=== PATIENT | male | born 1970 | race Caucasian/White ===

== ENCOUNTER 2021-01-03 17:29 | Emergency (ER) | payer MEDICARE, SELFPAY ==
[2021-01-03 17:40] VITALS: BP 111/75; PULSE 104; RESP 20; TEMP 37.1; O2SAT 96; BMI 26.6
--- NOTE | 2021-01-03 18:51 | XRR_ITS ---
PROCEDURE INFORMATION: Exam: XR Chest Exam date and time: 01/03/2021 6:55 PM Age: 50 years old Clinical indication: Cough and fever and shortness of breath; Additional info: N/v TECHNIQUE: Imaging protocol: XR of the chest. Views: 1 view. Total images: 1 COMPARISON: No relevant prior studies available. FINDINGS: Lungs: No visible active interstitial or alveolar airspace disease. Hyperinflation and query a history of COPD/chronic bronchitis. Pleural spaces: Unremarkable. No pleural effusion. No pneumothorax. Heart/Mediastinum: Unremarkable. No cardiomegaly. Bones/joints: Unremarkable. XR/XR chest 1V portable [id number] IMPRESSION: Nonacute.
--- NOTE | 2021-01-03 18:53 | ED_ITS ---
HPI - COVID General: Chief Complaint: COVID symptoms Stated Complaint: COVID SYMPTOMS Time Seen by Provider: 01/03/21 18:48 Triage information: Has fever, cough or shortness of breath . No known COVID + exposure last 14 days History of Present Illness: HPI Narrative: Patient presents with nausea vomiting and diarrhea. Body aches. Loss of taste and smell. No known Covid exposure. Has been around some folks with gastroenteritis. Has not taken any medications. MD complaint: other (Nausea vomiting diarrhea and body aches) Prior covid testing: no COVID 19 common symptoms: positive chills, body aches, loss of sense of smell and/or taste, nausea, vomiting and diarrhea; negative cough, non-productive cough, productive cough, dyspnea, headache(s) or nasal congestion COVID 19 other sytmptoms: negative chest pain Onset (ago): day(s) Severity: mild COVID Results: SARS-CoV-2 Antigen (Rapid) Negative (Negative) 01/03/21 20:05 01/03/21 Review of Systems Const: Reports: chills and body aches Eyes: Denies: change in vision or blurry vision ENMT: Denies: nasal congestion Card: Denies: chest pain or dyspnea on exertion Resp: Denies: dyspnea, productive cough or non-productive cough GI: Reports: abdominal pain, nausea, vomiting, diarrhea and white/light colored stool : Reports: other (Dark urine); Denies: difficulty urinating Musc: Denies: extremity pain Skin/Breast: Denies: rash Neuro: Denies: headache(s) Psych: Denies: anxiety or depression Ramsey/Lymph: Denies: easy bruising Physical Exam Const: COMMON NORMALS: no acute distress, average body habitus and patient oriented x3 HENMT: COMMON NORMALS: normocephalic HEAD & SCALP: normal to inspection and normocephalic FACE & SINUS: normal facial exam Eye: CONJUNCTIVA: Yes conjunctival abnormal (Mild jaundice) Neck/C-Spine: COMMON NORMALS: no JVD Chest: COMMONS NORMALS: normal inspection of the chest Resp: COMMON NORMALS: normal respiratory effort and clear to auscultation bilaterally AUSCULTATION: clear to auscultation bilaterally Cardio: COMMON NORMALS: no JVD, regular rate and regular rhythm RATE: regular rate RHYTHM: regular rhythm GI: COMMON NORMALS: Normal to inspection, nondistended, normoactive bowel sounds present PALPATION: Yes Tenderness to palpation present (GI) Details: RUQ Extremity: COMMON NORMALS: normal to inspection and full ROM Neuro: COMMON NORMALS: patient oriented x3 Course Vital Signs: Vital signs: Vital Signs Temperature 98.8 F 01/03/21 17:40 Pulse Rate 104 H 01/03/21 17:40 Respiratory Rate 20 H 01/03/21 17:40 Blood Pressure 111/75 01/03/21 17:40 Pulse Oximetry 94 01/03/21 20:16 MDM - COVID MDM Narrative: Medical decision making narrative: After chemistries come back 1 reassess patient patient admits to having hailey colored stools dark urine and he said his right upper quadrant has hurt some. Patient has slightly jaundice. Does admit to living with a hepatitis C person. Denies any known exposure to hepatitis. Discussed case with Dr. Daily. Will order abdominal CT.. CT show mildly thickened gallbladder wall. Does have some portal edema. Patient was advised to be admitted I spoke with Dr. Daily about the patient patient refused admission is signed out AMA he was canceled given sign out AMA and his dad was there and wanted him to stay in the hospital but patient refused said he will follow-up when he gets back to [place]. Patient signed AMA form. Lab Data: Labs: Lab Results 01/03/21 01/03/21 01/03/21 Range/Units 19:50 19:50 19:50 WBC 9.0 (4.0-10.0) 10^3/ uL RBC 5.16 (4.1-5.3) 10^6/u L Hgb 15.3 (11.7-16.6) g/dL Hct 44.3 (42.0-52.0) % MCV 85.9 (80-94) fL MCH 29.7 (28.0-34.0) pg MCHC 34.5 (30.0-36.0) g/dL RDW 13.7 (12.1-15.1) % Plt Count 231 (130-400) 10^3/c mm MPV 12.6 H (7.4-10.4) fL Neut % (Auto) 55.3 % Lymph % (Auto) 26.4 % [place] % (Auto) 14.6 % Eos % (Auto) 1.8 % Baso % (Auto) 0.8 % Neut # (Auto) 5.00 (1.8-7.7) 10^3/u L Lymph # (Auto) 2.4 (0.8-4.8) 10^3/u L [place] # (Auto) 1.3 H (0.2-0.9) 10^3/u L Eos # (Auto) 0.2 (0.0-0.8) 10^3/u L Baso # (Auto) 0.1 (0.0-0.1) 10^3/u L Nucleated RBC % (a uto) 0 % Nucleated RBCs # 0.0 /100WBC Sodium Cancelled Potassium Cancelled Chloride Cancelled Carbon Dioxide Cancelled Anion Gap Cancelled BUN Cancelled Creatinine Cancelled GFR Calculation Cancelled Glucose Cancelled Calculated Osmolal ity Cancelled Lactic Acid 1.7 (0.5-2.2) mmol/L Calcium Cancelled Total Bilirubin Cancelled AST Cancelled ALT Cancelled Alkaline Phosphata se Cancelled C-Reactive Protein Cancelled Total Protein Cancelled Albumin Cancelled Globulin Cancelled Hepatitis A IgM Ab (Nonreactive) Hep Bs Antigen (Nonreactive) Hep B Core IgM Ab (Nonreactive) Hepatitis C Antibo dy (Nonreactive) SARS-CoV-2 Ag (Rap id) (Negative) 01/03/21 01/03/21 01/03/21 Range/Units 20:05 21:02 21:02 WBC (4.0-10.0) 10^3/ uL RBC (4.1-5.3) 10^6/u L Hgb (11.7-16.6) g/dL Hct (42.0-52.0) % MCV (80-94) fL MCH (28.0-34.0) pg MCHC (30.0-36.0) g/dL RDW (12.1-15.1) % Plt Count (130-400) 10^3/c mm MPV (7.4-10.4) fL Neut % (Auto) % Lymph % (Auto) % [place] % (Auto) % Eos % (Auto) % Baso % (Auto) % Neut # (Auto) (1.8-7.7) 10^3/u L Lymph # (Auto) (0.8-4.8) 10^3/u L [place] # (Auto) (0.2-0.9) 10^3/u L Eos # (Auto) (0.0-0.8) 10^3/u L Baso # (Auto) (0.0-0.1) 10^3/u L Nucleated RBC % (a uto) % Nucleated RBCs # /100WBC Sodium 133 L Potassium 3.4 L Chloride 95 L Carbon Dioxide 32 H Anion Gap 9.4 BUN 8 Creatinine 0.6 L GFR Calculation 143.8 H Glucose 117 H Calculated Osmolal ity 275 L Lactic Acid (0.5-2.2) mmol/L Calcium 7.6 L Total Bilirubin 4.7 H AST 1084 H ALT 1850 H Alkaline Phosphata se 246 H C-Reactive Protein 16.0 H Total Protein 6.2 L Albumin 3.0 L Globulin 3.2 Hepatitis A IgM Ab Reactive H (Nonreactive) Hep Bs Antigen Non-reactive (Nonreactive) Hep B Core IgM Ab Non-reactive (Nonreactive) Hepatitis C Antibo dy Reactive H (Nonreactive) SARS-CoV-2 Ag (Rap id) Negative (Negative) COVID Results: SARS-CoV-2 Antigen (Rapid) Negative (Negative) 01/03/21 20:05 01/03/21 Discharge Plan Discharge Patient Disposition: Left Against Medical Advice Clinical Impression: Hepatitis A Qualifiers: Hepatic coma status: without hepatic coma Qualified Code(s): B15.9 - Hepatitis A without hepatic coma Hepatitis C Qualifiers: Viral hepatitis chronicity: acute Hepatic coma status: without hepatic coma Qualified Code(s): B17.10 - Acute hepatitis C without hepatic coma Condition: Stable Prescriptions: New Zofran 4 mg tablet 4 mg PO Q8H 3 Days Qty: 9 RF: 0 Discharge Orders: Discharge ED (Routine); Ordered 01/03/21 Ordered By: Itz Lyle Discharge Diet: Advance as tolerated Patient Instructions: Viral Hepatitis A (ED), Viral Hepatitis C (ED) Activity Restrictions/Additional Instructions: Follow-up with medical provider as directed. Take medications as prescribed. Return to the ER or your medical provider if condition worsens. Please read and understand discharge instructions. If any questions ask please. You are leaving AGAINST MEDICAL ADVICE that you should be admitted to the hospital. Very important that you make an appointment and follow-up with your primary care provider and [place] gastrointestinal specialist to deal with your hepatitis C. Coding Level of Care Code ED Boom Worker for Ольгаg Fwd Exam Comprehensive
[2021-01-03] MEDS: sodium chloride 0.9% 1,000 ML 999 ML IV ×2 (19:30→20:55)
[2021-01-03] MEDS: ondansetron 2 mg/ML SDV 2 mL 8 MG IVP (19:35)
[2021-01-03 20:16] VITALS: O2SAT 94
[2021-01-03 20:28] LABS: Basophils # 0.1 10^3/uL (0.0-0.1); Basophils % 0.8 %; Eosinophils # 0.2 10^3/uL (0.0-0.8); Eosinophils % 1.8 %; Hematocrit 44.3 % (42.0-52.0); Hemoglobin 15.3 g/dL (11.7-16.6); Lymphocytes # 2.4 10^3/uL (0.8-4.8); Lymphocytes % 26.4 %; Mean Corpuscular HGB Conc 34.5 g/dL (30.0-36.0); Mean Corpuscular Hemoglobin 29.7 pg (28.0-34.0); Mean Corpuscular Volume 85.9 fL (80-94); Mean Platelet Volume 12.6 fL (7.4-10.4); Monocytes # 1.3 10^3/uL (0.2-0.9); Monocytes % 14.6 %; Neutrophils % 55.3 %; Nucleated Red Blood Cells % 0 %; Platelet Count 231 10^3/cmm (130-400); Red Blood Count 5.16 10^6/uL (4.1-5.3); Red Cell Distribution Width 13.7 % (12.1-15.1)
[2021-01-03 20:39] LABS: SARS Covid-2 Antigen Negative (Negative)
[2021-01-03 20:43] LABS: Lactic Sepsis W/Reflex 1.7 mmol/L (0.5-2.2)
[2021-01-03 20:48] LABS: Slide Review Slide Review Perform
[2021-01-03 21:22] LABS: Alkaline Phosphatase 246 IU/L (40-130); Anion Gap 9.4 (5-19); Blood Urea Nitrogen 8 mg/dL (6-20); Calcium 7.6 mg/dL (8.5-10.5); Carbon Dioxide 32 mmol/L (22-29); Chloride 95 mmol/L (98-107); Creatinine Clr Calc Pharmacy 150.1483; Globulin 3.2 g/dL (1.3-4.6); Glomerular Filtration Rate 143.8 mL/min (90-130); Glucose 117 mg/dL (65-115); Osmolality Calculated 275 mOsm/kg (285-295); Potassium 3.4 mmol/L (3.5-5.1); Sodium 133 mmol/L (136-145); Total Bilirubin 4.7 mg/dL (0.15-1.2); Total Protein 6.2 g/dL (6.6-8.7)
[2021-01-03 21:33] LABS: Alanine Aminotransferase 1850 U/L (0-41)
[2021-01-03 21:34] LABS: Aspartate Amino Transferase 1084 U/L (0-40)
--- NOTE | 2021-01-03 21:48 | CTR_ITS ---
PROCEDURE INFORMATION: Exam: CT Abdomen And Pelvis With Contrast Exam date and time: 01/03/2021 9:52 PM Age: 50 years old Clinical indication: Abdominal pain; Localized; Right upper quadrant (ruq); Patient HX: PT. Eating in room prior to exam; Additional info: Elevated tranaminase, ruq pain TECHNIQUE: Imaging protocol: Computed tomography of the abdomen and pelvis with contrast. Total images: 236 Radiation optimization: All CT scans at this facility use at least one of these dose optimization techniques: automated exposure control; mA and/or kV adjustment per patient size (includes targeted exams where dose is matched to clinical indication); or iterative reconstruction. Contrast material: OMNI 300; Contrast volume: 95 ml; Contrast route: INTRAVENOUS (IV); COMPARISON: No relevant prior studies available. RADIATION DOSE METRICS: Total DLP (mGy-cm): 1490.81 FINDINGS: Lungs: Limited assessment of the lung bases fails to reveal evidence for active cardiopulmonary process. Liver: No visible hepatic mass or cystic structure. Mild periportal edema. Potential common etiologies for periportal edema include systemic hypervolemia, passive hepatic congestive, hepatitis, and cholangitis. Gallbladder and bile ducts: Gallbladder is contracted with markedly thickened wall. No visible formed cholelithiasis. No visible associated intra or extrahepatic biliary ectasia. Vicarious contrast excretion within the lumen the urinary bladder. Pancreas: Pancreas unremarkable. No visible pancreatic ductal ectasia. Spleen: Normal. No splenomegaly. Adrenal glands: Left adrenal cyst measuring 37 mm x 34 mm. No follow-up recommended. Right adrenal gland unremarkable. Kidneys and ureters: No hydronephrosis or perinephric fluid bilaterally. No visible nephrolithiasis or ureterolithiasis. Stomach and bowel: Assessment of the hollow viscus fails to reveal evidence of active or acute pathology. Nonobstructed bowel pattern. No visible acute diverticulitis. No visible adynamic or reactive ileus. Appendix: The appendix is visualized and appears noninflamed. Intraperitoneal space: No visible evidence of mesenteric lymphadenitis or active mesenteritis/panniculitis. No visible pneumoperitoneum or intraperitoneal ascites. Vasculature: Portal vein patent. The abdominal aorta is nonaneurysmal. Moderate arterial sclerotic disease. Lymph nodes: No current visible evidence of active mesenteric or retroperitoneal lymphadenopathy. Urinary bladder: Urinary bladder decompressed. Reproductive: Mild prostate hypertrophy. Bones/joints: No visible active or acute osseous pathology. Soft tissues: Heavy body habitus. CT/CT abdomen pelvis w con* [id number] IMPRESSION: 1. Gallbladder is contracted with markedly thickened wall. No visible formed cholelithiasis. 2. Mild periportal edema. 3. Left adrenal cyst. No follow-up recommended. Radiation Dose CTDIVOL = (mGy): DLP = 1490.81 (mGy-cm)
[2021-01-03] MEDS: iohexol 300 mg/mL 100 mL Btl IV (22:00)
[2021-01-03 22:14] LABS: Hepatitis A Antibody IgM Reactive (Nonreactive); Hepatitis B Core IgM Non-Reactive (Nonreactive); Hepatitis B Surface Antigen Non-Reactive (Nonreactive); Hepatitis C Virus Antibody Reactive (Nonreactive)
--- NOTE | 2021-01-03 22:26 | PC.NURSE ---
pt refusing orders for inpatient admission. CROCHET BEADER requesting pt sign AMA form
== END 2021-01-03 22:15 | disposition left against medical advice (07) ==
PROVIDERS: Emergency Provider Nurse Practitioner Family
DX: B15.9 Hepatitis A without hepatic coma (principal); B17.10 Acute hepatitis C without hepatic coma; Z53.21 Procedure and treatment not carried out due to patient leaving prior to being seen by health care provider
CPT/HCPCS: 36415; 71045; 74177; 80053; 80074; 83605; 85025; 86140; 87426; 96361; 96374; 99283; J2405; J7030; Q9967

== ENCOUNTER → 2022-07-01 16:00 | Outpatient (BNVA) | payer OTHER, MEDICARE, SELFPAY | PROVIDERS: Visit Provider Internal Medicine | DX: R76.8 Other specified abnormal immunological findings in serum (principal); B18.2 Chronic viral hepatitis C | CPT/HCPCS: 80053; 82105; 85025; 86705; 86706; 87340; 87522; 87902 ==

== ENCOUNTER 2023-03-18 13:07 | Emergency (ER) | payer MEDICARE, SELFPAY ==
[2023-03-18 13:14] VITALS: PULSE 117; RESP 18; TEMP 36.6; O2SAT 96; BMI 27.3
--- NOTE | 2023-03-18 13:58 | W.ED.GENADLT ---
HPI - General Adult General: Chief complaint: General Medical Stated complaint: stung 20xtimes, allergic to bees Time Seen by Provider: 03/18/23 13:38 Source: patient Mode of arrival: ambulatory Limitations: no limitations History of Present Illness: Patient is a 52-year-old male who presents to ED today for complaints of multiple wasp/yellow jacket stings approximately one hour ago. Patient states he had one anaphylactic reaction back when he was 20 years old following sting and is concerned for this. He states he was stung multiple times to his bilateral UE/LEs and complains of localized swelling/burning. Patient has no complaints of lip or oral swelling, no difficulty breathing or swallowing, no itchy throat, no rash. Patient took 1 g of Tylenol and 50 mg of Benadryl prior to arrival. Onset (ago): hour(s) Severity: mild Quality: burning Relieving factors: none Exacerbating factors: none Associated symptoms: Reports no associated symptoms; Deny chest pain, confusion, dyspnea, headache(s), nausea, rash, palpitations, syncope or vomiting Treatments prior to arrival: other (benadryl/tylenol) Review of Systems Eyes: Denies: change in vision or blurry vision ENMT: Denies: swelling of lips/tongue Card: Denies: chest pain, palpitations, irregular heart rhythm, lightheadedness, syncope or pre-syncope Resp: Denies: dyspnea or wheezing GI: Denies: abdominal pain, nausea or vomiting Skin/Breast: Denies: rash Neuro: Denies: headache(s), dizziness or confusion PFS ED PFSH: Medical History Chronic pain Dental caries associated with enamel hypomineralization Hep C w/o coma, chronic Hx of pneumococcal pneumonia Hx TIA/stroke w/o resid Tooth abscess Surgical History H/O total knee replacement Hx of knee surgery Family History Father Stroke Diabetes Mother Heart attack Lung disease Social History Smoking and tobacco status: current every day smoker Alcohol intake: current Substance/Drug Use: current Physical Exam Const: COMMON NORMALS: no acute distress, average body habitus, patient oriented x3, no limitations, healthy appearing, alert and well nourished HENMT: FACE & SINUS: normal facial exam MOUTH: other (no angioedema) THROAT: posterior oropharynx normal Eye: GENERAL EYE: appearance normal, both eyes and all related structures Neck/C-Spine: GENERAL: Yes normal visual inspection, No anterior neck swelling and No submandibular swelling Resp: COMMON NORMALS: normal respiratory effort and clear to auscultation bilaterally AUSCULTATION: clear to auscultation bilaterally Cardio: COMMON NORMALS: regular rate and regular rhythm RATE: regular rate RHYTHM: regular rhythm Extremity: NARRATIVE EXTREMITY EXAM: pt has multiple wasp stings to bilateral UE/LEs-most of which with no surrounding edema/erythema but a few have very mild localized reactions present GENERAL: Yes normal exam except as noted Neuro: CEDRICK COMA SCALE: document GCS findings Cedrick coma scale eye opening: Spontaneous [place] coma scale verbal response: Orientated Cedrick coma scale motor response: Obey commands Cedrick coma scale total score: 15 COMMON NORMALS: patient oriented x3 SENSORIUM/ORIENTATION: Yes alert Skin: NARRATIVE SKIN EXAM: see above Course Vital Signs: Vital signs: Vital Signs Temperature 97.9 F 03/18/23 13:14 Pulse Rate 117 H 03/18/23 13:14 Respiratory Rate 18 03/18/23 13:14 Pulse Oximetry 96 03/18/23 13:14 Oxygen Delivery Me thod Room Air 03/18/23 13:14 MDM - General Adult Medical Decision Making Patient has absolutely no symptoms apart from localized symptoms to the stings themselves. He has no signs or symptoms of anaphylaxis at this time. He has been here in the ED now approximately 1.5 hours and has not developed any concerning symptoms. He is stable for discharge with return to ED precautions. Discharge Plan Discharge Patient Disposition: Home Clinical Impression: Yellow jacket sting Qualifiers: Encounter type: initial encounter Injury intent: accidental or unintentional Qualified Code(s): T63.461A - Toxic effect of venom of wasps, accidental (unintentional), initial encounter Condition: Stable Prescriptions: No Action methylprednisolone [Medrol (Kyle)] 4 mg tablets,dose pack 4 mg PO DAILY Qty: 21 0RF ibuprofen 800 mg tablet 800 mg PO Q6H PRN (Reason: pain) Qty: 30 0RF amoxicillin-pot clavulanate 875-125 mg tablet 1 tab PO BID 10 Days Qty: 20 0RF Discharge Orders: Discharge ED (Routine); Ordered 03/18/23 Ordered By: Rosario Salguero Referrals: Frank Prasad MD [Primary Care Provider] - Patient Instructions: Insect Bite or Sting (ED) Coding Level of Care Code ED Child Development Teacher for Elidia Osuna
[2023-03-18 14:38] VITALS: PULSE 100; RESP 18; TEMP 36.6; O2SAT 96
== END 2023-03-18 14:39 | disposition home or self-care (01) ==
PROVIDERS: Emergency Provider Physician Assistant; PCP Internal Medicine
DX: T63.461A Toxic effect of venom of wasps, accidental (unintentional), initial encounter (principal); F17.200 Nicotine dependence, unspecified, uncomplicated; Z86.73 Personal history of transient ischemic attack (TIA), and cerebral infarction without residual deficits
CPT/HCPCS: 99282

== ENCOUNTER 2024-12-31 14:56 | Outpatient (CLI) | payer MEDICARE, SELFPAY ==
--- NOTE | 2024-12-31 15:01 | USCV_ITS ---
Brady Onel Age: 54 Gender: M : 1970 Exam Date: 12/31/2024 15:24 Ordering Phys: Ginger Fuentes Technologist: Brennan Quiñonez Exam Location: [facility] [place]_ Indication: right lower extremity pain PROCEDURES: Venous duplex imaging was performed in only the right lower extremity. The following venous structures were evaluated: common femoral vein, profunda vein, proximal portion of the greater saphenous vein, superficial femoral vein, and the popliteal vein. In addition, the posterior tibial and peroneal trunk were evaluated. Serial compression, augmentation maneuvers, and spectral Doppler flow evaluation were performed. FINDINGS: Normal 2-D Doppler and augmentation and compressibility throughout the lower extremity venous structures. Additional imaging through the proximal calf veins also reveals no thrombus. Limited evaluation of the greater saphenous vein is patent with no thrombus. CONCLUSIONS No evidence of right lower extremity DVT. Ray Raymundo MD (Electronically Signed) Final Date: 31 December 2024 15:49 S
== END 2024-12-31 14:57 | disposition home or self-care (01) ==
PROVIDERS: PCP Internal Medicine; Visit Provider Nurse Practitioner
DX: M79.604 Pain in right leg (principal)
CPT/HCPCS: 93971

== ENCOUNTER 2025-01-07 09:21 | Outpatient (CLI) | payer MEDICARE, SELFPAY ==
--- NOTE | 2025-01-07 09:26 | USR_ITS ---
PROCEDURE INFORMATION: Exam: US Bilateral Noninvasive Physiologic Study of the Lower Extremity Arteries, Limited Exam date and time: 01/07/2025 9:19 AM Age: 54 years old Clinical indication: Pain; Leg, lower; Right; Additional info: R lower extremity pain, stat TECHNIQUE: Imaging protocol: Bilateral Limited bilateral noninvasive physiologic studies of lower extremity arteries. Waveforms were obtained and evaluated. Images were documented and archived. Exam is limited. COMPARISON: [place] [id number] 12/31/2024 3:24 PM FINDINGS: Right Ankle-Brachial Index: Right AVEL is 0.66 at the posterior tibial, 0.63 at the dorsalis pedis, and 0.62 at the digit. Left Ankle-Brachial Index: 1.08 at the posterior tibial, 0.96 at the dorsalis pedis, and 0.89 at the digit. US/CV ankle brachial index [id number] IMPRESSION: Diminished AVEL on the right.
== END 2025-01-07 09:22 | disposition home or self-care (01) ==
LOC: RAD 09:22
PROVIDERS: PCP Internal Medicine; Visit Provider Nurse Practitioner
DX: I73.9 Peripheral vascular disease, unspecified (principal); R93.89 Abnormal findings on diagnostic imaging of other specified body structures
CPT/HCPCS: 93922